=== PATIENT | female | born 1975 | race Native Hawaiian/Other Pacific Islander ===

== ENCOUNTER 2016-11-30 13:31 | Outpatient (CLI) | payer BC | END 2016-11-30 19:36 | disposition home or self-care (01) | LOC: RAD 13:31 | DX: R05 Cough (principal); R06.02 Shortness of breath ==

== ENCOUNTER 2017-03-19 21:05 | Observation (INO) | payer BC ==
[~2017-03-19] VITALS: Ht 162.6 cm; Wt 85.3 kg
[2017-03-19 21:33] VITALS: BP 143/98; TEMP 97.6
[2017-03-19 22:29] LABS: PLATELET COUNT 261 K/uL (152-353)
[2017-03-19 23:26] LABS: POTASSIUM 3.8 mmol/L (3.6-5.2); SODIUM 140 mmol/L (136-145)
[2017-03-20 02:00] VITALS: BP 133/71; TEMP 97.9; Ht 162.6 cm; Wt 85.3 kg
--- NOTE | 2017-03-20 03:58 | NUR ---
NO CPT DUE TO PTS REQUEST TO SLEEP. PT C/O OF H/A.
[2017-03-20 04:00] VITALS: BP 99/54; TEMP 97.8
[2017-03-20 08:00] VITALS: BP 101/49; TEMP 98.1
[2017-03-20 12:00] VITALS: BP 148/76; TEMP 97.7
[2017-03-20 16:00] VITALS: BP 140/69; TEMP 98.9
[2017-03-20 20:00] VITALS: BP 123/77; TEMP 97.9
[2017-03-21 00:21] VITALS: BP 140/79; TEMP 97
[2017-03-21 04:00] VITALS: BP 106/57; TEMP 97
[2017-03-21 06:33] LABS: POTASSIUM 3.4 mmol/L (3.6-5.2); SODIUM 141 mmol/L (136-145)
[2017-03-21 06:39] LABS: PLATELET COUNT 218 K/uL (152-353)
[2017-03-21 08:00] VITALS: BP 107/61; TEMP 98
[2017-03-21 12:00] VITALS: BP 138/73; TEMP 98.4
--- NOTE | 2017-03-21 15:35 | NUR ---
IV SITE D/C'D WITH TIP INTACT AND SITE CARE DONE.
--- NOTE | 2017-03-21 15:41 | NUR ---
D/C INSTRUCTIONS GIVEN TO PT AND SHE VERBALIZES UNDERSTANDING. PT AWAITING TRANSPORTATION.
[2017-03-21 15:51] VITALS: BP 136/84; TEMP 98.7
--- NOTE | 2017-03-21 16:19 | NUR ---
PT AMBULATORY OUT WITH NAD AND FAMILY AT SIDE. PT REFUSES W/C.
== END 2017-03-21 16:00 | disposition home or self-care (01) ==
LOC: ED 21:05 → MED/SURG 03-20 00:10
PROVIDERS: Internal Medicine; ADMIT Family Medicine
DX: J20.9 Acute bronchitis, unspecified (principal); J45.998 Other asthma
CPT/HCPCS: 36415; 80048; 80053; 83880; 85027; 93005; 94640; 94644; 94645; 94664; 94668; 94760; 96365; 96366; 96367; 96372; 96374; 96375; 99220; 99284; G0378; J0456; J0696; J1885; J2270; J2550; J2930

== ENCOUNTER 2017-07-21 07:26 | Emergency (ER) | payer BC ==
[~2017-07-21] VITALS: Ht 160 cm; Wt 80.7 kg
[2017-07-21 09:20] VITALS: BP 121/62; TEMP 97.9
== END 2017-07-21 09:20 | disposition home or self-care (01) ==
LOC: ED 07:26
DX: S93.602A Unspecified sprain of left foot, initial encounter (principal); S96.912A Strain of unspecified muscle and tendon at ankle and foot level, left foot, initial encounter; X58.XXXA Exposure to other specified factors, initial encounter; Y93.64 Activity, baseball; Y92.830 Public park as the place of occurrence of the external cause
CPT/HCPCS: 96372; 99283; J1885

== ENCOUNTER 2018-04-08 12:33 | Outpatient (CLI) | payer BC ==
[2018-04-08 12:58] LABS: PLATELET COUNT 236 K/uL (152-353)
[2018-04-08 13:14] LABS: POTASSIUM 3.9 mmol/L (3.6-5.2)
== END 2018-04-08 22:05 | disposition home or self-care (01) ==
LOC: LABW 12:33
PROVIDERS: Nurse Practitioner
DX: M79.1 Myalgia (principal); R06.02 Shortness of breath; R53.83 Other fatigue; R60.0 Localized edema; E78.00 Pure hypercholesterolemia, unspecified
CPT/HCPCS: 36415; 80053; 80061; 83880; 84439; 84443; 85027; 85651; 86039

== ENCOUNTER 2019-02-21 21:02 | Emergency (ER) | payer BC ==
[~2019-02-21] VITALS: Ht 157.5 cm; Wt 81.6 kg
[2019-02-21 22:00] LABS: PLATELET COUNT 173 K/uL (152-353)
[2019-02-21 22:14] LABS: POTASSIUM 3.3 mmol/L (3.6-5.2)
[2019-02-22 00:27] VITALS: BP 155/78; TEMP 98.5
== END 2019-02-22 00:27 | disposition home or self-care (01) ==
LOC: ED 21:02
PROVIDERS: Internal Medicine
DX: E87.6 Hypokalemia (principal); M79.10 Myalgia, unspecified site; R51 Headache; B34.9 Viral infection, unspecified
CPT/HCPCS: 36415; 80053; 81000; 82550; 85027; 87502; 87651; 96360; 99284

== ENCOUNTER 2019-05-16 10:57 | Outpatient (CLI) | payer BC | END 2019-05-16 23:59 | LOC: RESP 10:57 | DX: I48.91 Unspecified atrial fibrillation (principal); R00.2 Palpitations; R42 Dizziness and giddiness ==

== ENCOUNTER 2019-06-20 13:02 | Outpatient (CLI) | payer BC | END 2019-06-20 19:43 | disposition home or self-care (01) | LOC: CT 13:02 | DX: J96.91 Respiratory failure, unspecified with hypoxia (principal); R10.9 Unspecified abdominal pain ==

== ENCOUNTER 2019-06-22 07:24 | Outpatient (CLI) | payer BC | END 2019-06-22 19:43 | disposition home or self-care (01) | LOC: CT 07:24 | DX: J96.91 Respiratory failure, unspecified with hypoxia (principal); R10.9 Unspecified abdominal pain | CPT/HCPCS: Q9963 ==

== ENCOUNTER 2019-11-13 13:50 | Outpatient (CLI) | payer BC | END 2019-11-13 21:37 | disposition home or self-care (01) | LOC: RAD 13:50 | DX: R06.02 Shortness of breath (principal); R05 Cough ==

== ENCOUNTER 2019-11-17 07:51 | Outpatient (CLI) | payer BC | END 2019-11-17 19:27 | disposition home or self-care (01) | LOC: CT 07:51 | DX: R06.02 Shortness of breath (principal); R05 Cough | CPT/HCPCS: Q9963 ==

== ENCOUNTER 2019-11-29 14:42 | Outpatient (CLI) | payer BC ==
[2019-11-29 15:13] LABS: PLATELET COUNT 259 K/uL (152-353)
[2019-11-29 15:34] LABS: POTASSIUM 3.8 mmol/L (3.6-5.2)
== END 2019-11-29 19:25 | disposition home or self-care (01) ==
LOC: LABW 14:42
PROVIDERS: Internal Medicine
DX: R11.2 Nausea with vomiting, unspecified (principal)
CPT/HCPCS: 36415; 80053; 81000; 85027

== ENCOUNTER 2020-03-26 14:02 | Outpatient (CLI) | payer BC | END 2020-03-26 20:38 | disposition home or self-care (01) | LOC: LABW 14:02 | DX: E11.9 Type 2 diabetes mellitus without complications (principal) | CPT/HCPCS: 36415; 83036 ==

== ENCOUNTER 2020-05-23 09:13 | Outpatient (CLI) | payer BC ==
[2020-05-23 10:33] LABS: PLATELET COUNT 218 K/uL (152-353)
== END 2020-05-23 21:29 | disposition home or self-care (01) ==
LOC: MAMMO 09:13
PROVIDERS: Internal Medicine
DX: K75.81 Nonalcoholic steatohepatitis (NASH) (principal); E78.5 Hyperlipidemia, unspecified; R92.8 Other abnormal and inconclusive findings on diagnostic imaging of breast
CPT/HCPCS: 36415; 80076; 85027; G0279

== ENCOUNTER 2020-09-06 15:32 | Outpatient (CLI) | payer BC | END 2020-09-06 20:10 | disposition home or self-care (01) | LOC: CT 15:32 | PROVIDERS: ATTEND Nurse Practitioner | DX: R91.8 Other nonspecific abnormal finding of lung field (principal) | CPT/HCPCS: 36415; 82565; 84520; Q9963 ==

== ENCOUNTER 2020-09-18 09:28 | Outpatient (CLI) | payer BC | END 2020-09-18 19:54 | disposition home or self-care (01) | LOC: CT 09:28 | PROVIDERS: ATTEND Nurse Practitioner | DX: R05 Cough (principal) | CPT/HCPCS: Q9963 ==

== ENCOUNTER 2020-10-09 10:39 | Emergency (ER) | payer BC ==
[~2020-10-09] VITALS: Ht 157.5 cm; Wt 88.9 kg
[2020-10-09 10:39] VITALS: TEMP 98.3
[2020-10-09] MEDS ORDERED: ASPIRIN 81 LOW81 MG PO (10:56)
[2020-10-09] MEDS ORDERED: METFTAB PO (10:57)
[2020-10-09] MEDS ORDERED: OZEMPIC2 MG/1.5 M SC (10:58)
[2020-10-09 11:10] LABS: PLATELET COUNT 217 K/uL (152-353)
[2020-10-09 12:30] VITALS: BP 118/67
[2020-10-09] MEDS ORDERED: VERA40TA PO (12:38)
[2020-10-09] MEDS ORDERED: ROSU10TA PO (12:38)
== END 2020-10-09 12:50 | disposition home or self-care (01) ==
LOC: ED 10:52
PROVIDERS: Hospitalist
DX: J06.9 Acute upper respiratory infection, unspecified (principal); R11.2 Nausea with vomiting, unspecified; Z20.828 Contact with and (suspected) exposure to other viral communicable diseases; F17.210 Nicotine dependence, cigarettes, uncomplicated
CPT/HCPCS: 36415; 80053; 85027; 87502; 87635; 87651; 96360; 96375; 99284; J1885; J2405; U0003

== ENCOUNTER 2021-01-06 14:55 | Outpatient (CLI) | payer BC ==
[~2021-01-06 14:55] MED LIST: ASPIRIN 81 LOW81 MG PO; METFTAB PO; OZEMPIC2 MG/1.5 M SC; ROSU10TA PO; VERA40TA PO
== END 2021-01-06 20:52 | disposition home or self-care (01) ==
LOC: RAD 14:55
PROVIDERS: ATTEND Internal Medicine
DX: M79.661 Pain in right lower leg (principal); W19.XXXA Unspecified fall, initial encounter

== ENCOUNTER 2021-03-14 13:03 | Outpatient (CLI) | payer BC | END 2021-03-14 23:59 | disposition home or self-care (01) | LOC: MRI 13:03 | PROVIDERS: ATTEND Internal Medicine | DX: M54.2 Cervicalgia (principal); R22.1 Localized swelling, mass and lump, neck ==

== ENCOUNTER 2021-08-08 14:26 | Outpatient (CLI) | payer BC | END 2021-08-08 20:51 | disposition home or self-care (01) | LOC: MAMMO 14:26 | PROVIDERS: ATTEND Internal Medicine | DX: Z12.31 Encounter for screening mammogram for malignant neoplasm of breast (principal) ==

== ENCOUNTER 2021-11-26 16:06 | Outpatient (CLI) | payer BC | END 2021-11-26 19:28 | disposition home or self-care (01) | LOC: RAD 16:06 | PROVIDERS: ATTEND Neurological Surgery | DX: M47.22 Other spondylosis with radiculopathy, cervical region (principal) ==

== ENCOUNTER 2022-09-25 12:46 | Outpatient (CLI) | payer BC | END 2022-09-25 23:38 | disposition home or self-care (01) | LOC: MAMMO 12:46 | PROVIDERS: ATTEND Internal Medicine | DX: Z12.31 Encounter for screening mammogram for malignant neoplasm of breast (principal) ==

== ENCOUNTER 2023-01-07 11:00 | Observation (INO) | payer BC ==
[~2023-01-07] VITALS: Ht 160 cm; Wt 62.8 kg
[2023-01-07 11:00] VITALS: BP 126/62; TEMP 98.5
[2023-01-07 11:25] LABS: PLATELET COUNT 231 K/uL (152-353)
[2023-01-07 11:35] LABS: POTASSIUM 3.6 mmol/L (3.6-5.2)
[2023-01-07 11:52] LABS: PARTIAL THROMBOPLASTIN TIME 26.4 SECONDS (24.5-33.6)
[2023-01-07 15:00] VITALS: BP 127/85; TEMP 97.6
[2023-01-07 15:19] VITALS: BP 116/56; TEMP 98.4; Ht 160 cm; Wt 62.8 kg
[2023-01-07] MEDS ORDERED: MOUNJARO 15 MG/0.5 ML INJ (15:34)
[2023-01-07] MEDS ORDERED: CYCL10TA35 PO (15:34)
[2023-01-07] MEDS ORDERED: CRESTOR20 MG PO (15:35)
[2023-01-07] MEDS ORDERED: MONT10TA PO (15:35)
[2023-01-07] MEDS ORDERED: VERA80TAB PO (15:36)
[2023-01-07] MEDS ORDERED: BASAGLAR K100 UNIT/M SC (15:36)
[2023-01-07] MEDS ORDERED: PRAS10TA PO (15:37)
== END 2023-01-07 18:16 | disposition short-term general hospital (02) ==
LOC: ED 11:09 → MED/SURG 12:58
PROVIDERS: ADMIT Family Medicine; ATTEND Internal Medicine
DX: R07.89 Other chest pain (principal); E11.9 Type 2 diabetes mellitus without complications; Z79.4 Long term (current) use of insulin; Z79.84 Long term (current) use of oral hypoglycemic drugs; Z79.85 Long-term (current) use of injectable non-insulin antidiabetic drugs; Z79.899 Other long term (current) drug therapy
CPT/HCPCS: 36415; 80053; 80307; 81002; 82550; 82948; 84484; 85027; 85610; 85730; 93005; 96367; 96375; 99221; 99283; G0378; J1644; J3490